=== PATIENT | female | born 1985 | race Caucasian/White ===

== ENCOUNTER 2024-11-25 09:49 | Outpatient (CLI) | payer OTHER, SELFPAY ==
[2024-11-26 19:28] LABS: HPV Source Cervix
[2024-11-27 16:23] LABS: HPV Genotype 16 by TMA Not Detected; HPV Genotype 18/45 by TMA Not Detected
[2024-11-30 14:37] LABS: Pap Test Reviewed by Path Done
== END 2024-11-25 09:50 | disposition home or self-care (01) ==
PROVIDERS: Visit Provider Obstetrics & Gynecology
DX: N92.6 Irregular menstruation, unspecified (principal); G25.81 Restless legs syndrome; R63.5 Abnormal weight gain; Z12.4 Encounter for screening for malignant neoplasm of cervix; Z11.51 Encounter for screening for human papillomavirus (HPV)
CPT/HCPCS: 82728; 83001; 83498; 84146; 84270; 84402; 84403; 84443; 87624; 87625; 88141; 88142

== ENCOUNTER 2025-01-14 08:22 | Outpatient (CLI) | payer OTHER, SELFPAY | END 2025-01-14 08:23 | disposition home or self-care (01) | LOC: NFLDREF 01-20 07:48 | PROVIDERS: PCP Family Medicine; Referring Provider Family Medicine; Visit Provider Family Medicine | DX: R53.83 Other fatigue (principal); G25.81 Restless legs syndrome; R20.0 Anesthesia of skin; R63.5 Abnormal weight gain; N92.6 Irregular menstruation, unspecified | CPT/HCPCS: 80053; 80061; 82607 ==

== ENCOUNTER 2025-03-19 13:15 | Outpatient (CLI) | payer OTHER, SELFPAY | END 2025-03-19 13:16 | disposition home or self-care (01) | LOC: NFLDREF 03-24 21:50 | PROVIDERS: PCP Family Medicine; Referring Provider Family Medicine; Visit Provider Family Medicine | DX: G25.81 Restless legs syndrome (principal); R53.83 Other fatigue; R73.03 Prediabetes; R79.89 Other specified abnormal findings of blood chemistry | CPT/HCPCS: 80061; 80076; 82728 ==

== ENCOUNTER 2025-03-26 12:55 | Outpatient (CLI) | payer OTHER, SELFPAY ==
--- NOTE | 2025-03-26 13:00 | CRLHL7_ITS ---
For Patients: As a result of the Century Cures Act, medical imaging exams and procedure reports are released immediately into your electronic medical record. You may view this report before your referring provider. If you have questions, please contact your health care provider. INDICATION: BILATERAL SCREENING MAMMOGRAM, ASYMPTOMATIC 39 Y/O FEMALE COMPARISON: NONE TECHNIQUE: Digital mammogram in CC and MLO projections including computer-aided detection (CAD) and tomosynthesis. BREAST COMPOSITION: There are scattered areas of fibroglandular density. FINDINGS: No suspicious findings. ASSESSMENT: BI-RADS 1 Negative RECOMMENDATION: Annual screening mammogram. A lay language report of this examination will be provided to the patient. Dictated by: Nic Hardy MD @ 03/29/2025 09:10:20 (Electronically Signed)
== END 2025-03-26 12:56 | disposition home or self-care (01) ==
LOC: MAMMO 12:57
PROVIDERS: PCP Family Medicine; Visit Provider Obstetrics & Gynecology
DX: Z12.31 Encounter for screening mammogram for malignant neoplasm of breast (principal)
CPT/HCPCS: 77063; 77067